=== PATIENT | female | born 1930 | race Caucasian/White ===

== ENCOUNTER 2016-11-02 09:56 | Emergency (ER) | payer MEDICARE, OTHER ==
--- NOTE | 2016-11-02 10:13 | ER Document Report ---
ED General - General Stated Complaint: GENERAL WEAKNESS Time Seen by Provider: 11/02/16 10:01 Mode of Arrival: Medic Information source: Patient, Relative, Emergency Med Personnel Notes: 86 yr old female presents with complaints of weakness, dizziness and vomiting. Pt noted not to have taken her meds for 4 days. Pt denies any fevers or chills, denies any chest pain - HPI Onset/Duration: Persistent Quality of pain: No pain Severity: Moderate Pain Level: Denies Associated symptoms: Nausea, Weakness Exacerbated by: Denies Relieved by: Denies Similar symptoms previously: No Recently seen / treated by doctor: No - Related Data Home Medications: Current Home Medications Clopidogrel Bisulfate [Plavix 75 mg Tablet] 75 mg PO DAILY 11/02/16 [History] Docusate Sodium [Colace 100 mg Capsule] 100 mg PO BID 11/02/16 [History] Hum Insulin NPH/Reg Insulin Hm [Novolin 70-30 100 Unit/Ml Vial] 75 unit SQ BID 11/02/16 [History] Lisinopril [Prinivil] 20 mg PO DAILY 11/02/16 [History] Simvastatin [Zocor 20 mg Tablet] 40 mg PO QHS 11/02/16 [History] Past Medical History - Social History Smoking Status: Never Smoker Cigarette use (# per day): No Chew tobacco use (# tins/day): No Smoking Education Provided: No Family History: Reviewed & Not Pertinent Review of Systems - Review of Systems Constitutional: Weakness EENT: No symptoms reported Cardiovascular: No symptoms reported Respiratory: No symptoms reported Gastrointestinal: Nausea Genitourinary: No symptoms reported Female Genitourinary: No symptoms reported Musculoskeletal: No symptoms reported Skin: No symptoms reported Hematologic/Lymphatic: No symptoms reported Neurological/Psychological: Other - dizzy -: Yes All other systems reviewed and negative Physical Exam - Vital signs Vitals: Resp 18 11/02/16 10:00 Interpretation: Normal - General General appearance: Appears well, Alert - HEENT Head: Normocephalic Eyes: Normal - Respiratory Respiratory status: No respiratory distress Chest status: Nontender Breath sounds: Normal Chest palpation: Normal - Cardiovascular Rhythm: Bradycardia Heart sounds: Normal auscultation Murmur: No - Abdominal Inspection: Normal Distension: No distension Bowel sounds: Normal Tenderness: Nontender Organomegaly: No organomegaly - Back Back: Normal, Nontender - Extremities General upper extremity: Normal inspection, Nontender, Normal color, Normal ROM , Normal temperature General lower extremity: Normal inspection, Nontender, Normal color, Normal ROM , Normal temperature, Normal weight bearing. No: Brayan's sign - Neurological Neuro grossly intact: Yes Cognition: Normal Orientation: AAOx4 [place] Coma Scale Eye Opening: Spontaneous [place] Coma Scale Verbal: Oriented [place] Coma Scale Motor: Obeys Commands [place] Coma Scale Total: 15 Speech: Normal Motor strength normal: LUE, RUE, LLE, RLE Sensory: Normal Course - Re-evaluation Re-evalutation: 11/02/16 11:12 Pt noted ot be bradycardic , I consulted Dr campa, who agrees to a type 2 second degree heart block, requests atropine given, pt hr now 37 family discussing pacemaker placement 11/02/16 11:23 pt being given atropine 11/02/16 11:31 Family and patient agree for pacer placement. [facility] paged 11/02/16 11:54 11/02/16 11:55 Dr Theodore ICU accepts for transfer - Vital Signs Vital signs: Temp Pulse Resp BP Pulse Ox 50 L 12 134/79 H 98 11/02/16 10:45 11/02/16 12:01 11/02/16 12:01 11/02/16 12:01 - Laboratory Result Diagrams: 11/02/16 10:20 11/02/16 11:20 Laboratory results interpreted by me: 11/02/16 11/02/16 10:20 11:20 WBC 12.4 H Sodium 136.8 L Chloride 96 L BUN 48 H Creatinine 1.69 H Est GFR ( Amer) 35 L Est GFR (Non-Af Amer) 29 L Glucose 272 H AST 13 L Creatine Kinase < 20 L - EKG Interpretation by Me EKG shows normal: QRS Complexes Rate: Bradycardia Heart block present: Mobitz 2 When compared to previous EKG there are: Changes noted Critical Care Note - Critical Care Note Total time excluding time spent on procedures (mins): 85 Comments: 85 minutes of critical care time requested for multiple evaluations, intervention, transfer Discharge - Discharge Clinical Impression: Mobitz type II atrioventricular block, Weakness Condition: Serious Disposition: [facility]
[2016-11-02 10:33] LABS: ABSOLUTE BASOPHILS # (AUTO) 0.1 10^3/uL (0.0-0.2); ABSOLUTE EOSINOPHILS # (AUTO) 0.2 10^3/uL (0.0-0.6); ABSOLUTE LYMPHOCYTES (AUTO) 3.3 10^3/uL (0.5-4.7); ABSOLUTE MONOCYTES (AUTO) 0.9 10^3/uL (0.1-1.4); ABSOLUTE NEUT (AUTO) 7.9 10^3/uL (1.7-8.2); BASOPHILS % (AUTO) 0.5 % (0-2); EOSINOPHILS % (AUTO) 1.5 % (0-6); HEMATOCRIT 36.8 % (36.0-47.0); HEMOGLOBIN 12.3 g/dL (12.0-15.5); HGB HCT DIFFERENCE 0.1; LYMPHOCYTES % (AUTO) 26.8 % (13-45); MEAN CORPUSCULAR HEMOGLOBIN 29.9 pg (27.0-33.4); MEAN CORPUSCULAR HGB CONC 33.3 g/dL (32.0-36.0); MEAN CORPUSCULAR VOLUME 90 fl (80-97); MONOCYTES % (AUTO) 7.5 % (3-13); RED CELL DISTRIBUTION WIDTH 13.3 % (11.5-14.0); SEGMENTED NEUTROPHILS % (AUTO) 63.7 % (42-78); WHITE BLOOD COUNT 12.4 10^3/uL (4.0-10.5)
[2016-11-02 11:05] LABS: CREATINE KINASE MB 0.89 ng/mL (<4.55)
[2016-11-02] MEDS ORDERED: ATROPINE SULFATE INJ 1 MG/1 ML VIAL IV ONE (11:12)
[2016-11-02 11:24] LABS: TROPONIN I 0.077 ng/mL
[2016-11-02 12:00] LABS: ALANINE AMINOTRANSFERASE 17 U/L (9-52); ALBUMIN 3.9 g/dL (3.5-5.0); ALKALINE PHOSPHATASE 102 U/L (38-126); ANION GAP 14 (5-19); ASPARTATE AMINO TRANSFERASE 13 U/L (14-36); BILIRUBIN,DIRECT 0.4 mg/dL (0.0-0.4); BILIRUBIN,TOTAL 0.6 mg/dL (0.2-1.3); BLOOD UREA NITROGEN 48 mg/dL (7-20); CALCIUM 9.3 mg/dL (8.4-10.2); CARBON DIOXIDE 27 mmol/L (22-30); CHLORIDE 96 mmol/L (98-107); CREATININE RESULT 1.69 mg/dL (0.52-1.25); GLUCOSE 272 mg/dL (75-110); POTASSIUM 3.8 mmol/L (3.6-5.0); SODIUM 136.8 mmol/L (137-145); TOTAL PROTEIN 6.5 g/dL (6.3-8.2)
[2016-11-02 12:01] LABS: CREATINE KINASE < 20 U/L (30-135)
[2016-11-02 12:16] VITALS: BP 134/79
--- NOTE | 2016-11-03 16:35 | EKG REPORT ---
SEVERITY:- ABNORMAL ECG - PREDOMINANT 2:1 AV BLOCK MOBITZ I AV BLOCK (WENCKEBACH) RIGHT BUNDLE BRANCH BLOCK : Confirmed by: Norm Clark 03-Nov-2016 16:34:47
== END 2016-11-02 13:07 | disposition short-term general hospital (02) ==
LOC: ER 09:56
DX: I44.1 Atrioventricular block, second degree (principal); R53.1 Weakness; Z79.899 Other long term (current) drug therapy; R42 Dizziness and giddiness; R11.10 Vomiting, unspecified
CPT/HCPCS: 93005; 99285; 96374; 36415; 82553; 82550; 83735; 84443; 85025; 80053; 84484; 93010; J0461